=== PATIENT | female | born 1985 | race Caucasian/White ===

== ENCOUNTER 2020-09-06 00:12 | Emergency (ER) | payer OTHER ==
[2020-09-06 00:56] LABS: BASOPHIL 0.9 % (0-2); BILIRUBIN NEGATIVE (NEGATIVE); BLOOD 3+ Ery/uL (NEGATIVE); CLARITY CLEAR (CLEAR); COLOR YELLOW (YELLOW); EOSINOPHIL 5.2 % (0-5); GLUCOSE (U) NORMAL (NORMAL); HCT 35.2 % (37.0-47.0); HGB 12.3 g/dl (12.5-16.0); LEUKOCYTES NEGATIVE Leu/uL (NEGATIVE); LYMPHOCYTE 29.5 % (15-48); MCH 32.5 pg (25.0-31.0); MCHC 34.9 g/dL (32.0-36.0); MCV 93.1 fL (78.0-100.0); MONOCYTE 5.6 % (0-12); MPV 9.7 fL (6.0-9.5); NEUTROPHIL 58.4 % (41-80); NITRITE NEGATIVE (NEGATIVE); NRBC 0; PLT 334 K/uL (150-400); PROTEIN NEGATIVE (NEGATIVE); RBC 3.78 M/uL (4.20-5.40); RDW 12.1 % (11.5-14.0); SPECIFIC GRAVITY 1.025 (1.001-1.030); UROBILINOGEN 0.2 mg/dL (0.2-1.0); WBC 11.1 K/uL (4.0-10.5)
[2020-09-06 01:05] LABS: AMORPHOUS URATES CRYSTALS MODERATE; MUCOUS TRACE; URINARY WBC RARE
[2020-09-06 01:14] LABS: INR 1.13 (0.9-1.2); PROTHROMBIN TIME 13.8 SECONDS (11.4-13.6); PTT 34.3 SECONDS (22.2-34.7)
[2020-09-06 01:21] LABS: ALBUMIN 3.6 g/dL (3.4-5.0); BILIRUBIN - TOTAL 0.1 mg/dL (0.2-1.0); BUN/CREAT RATIO (CALC) 21.3 RATIO; CREATININE 0.75 mg/dL (0.51-0.95); GLOBULIN (CALCULATION) 3.7 g/dL; POTASSIUM 3.8 mmol/L (3.5-5.1); TOTAL PROTEIN 7.3 g/dL (6.4-8.2)
[2020-09-08 06:10] LABS: CHLAMYDIA TRACHOMATIS, NAA Negative (Negative); NEISSERIA GONORRHOEAE, NAA Negative (Negative)
== END 2020-09-06 02:20 | disposition home or self-care (01) ==
LOC: FER 00:12
PROVIDERS: Emergency Medicine Emergency Medical Services
DX: N94.6 Dysmenorrhea, unspecified (principal); J45.909 Unspecified asthma, uncomplicated; F17.210 Nicotine dependence, cigarettes, uncomplicated
CPT/HCPCS: 36415; 80053; 81001; 85025; 85610; 85730; 86900; 86901; 87210; 87491; 87591; J2270; J2405; J7030

== ENCOUNTER → 2021-06-13 | Day surgery (SDC) | payer OTHER ==
[~2021-06-13] VITALS: Ht 172.7 cm; Wt 89.8 kg
[~2021-06-13] MED LIST: COLACE100 MG PO; DULERA 200 MCG8.8 GM INH; MOTRIN600 MG PO; NAPROXEN500 MG PO; OZEMPIC0.25 MG/0. SC; PERCOCET 5-3251 EACH PO; XOPENEX HFA15 GM INH
[2021-06-13 11:29] LABS: HCG (URINE) SCREEN NEGATIVE (NEGATIVE)
[2021-06-13 11:36] LABS: HCT 37.1 % (37.0-47.0); HGB 12.8 g/dl (12.5-16.0); MCH 31.4 pg (25.0-31.0); MCHC 34.5 g/dL (32.0-36.0); MCV 90.9 fL (78.0-100.0); MPV 9.7 fL (6.0-9.5); RBC 4.08 M/uL (4.20-5.40); RDW 12.1 % (11.5-14.0); WBC 8.3 K/uL (4.0-10.5)
== END | disposition home or self-care (01) ==
LOC: FAS 10:59
PROVIDERS: Obstetrics & Gynecology
DX: D25.1 Intramural leiomyoma of uterus (principal); N80.0 Endometriosis of uterus; N72 Inflammatory disease of cervix uteri; N87.9 Dysplasia of cervix uteri, unspecified; N92.1 Excessive and frequent menstruation with irregular cycle; E78.5 Hyperlipidemia, unspecified; E66.3 Overweight; E55.9 Vitamin D deficiency, unspecified; K21.9 Gastro-esophageal reflux disease without esophagitis; F17.210 Nicotine dependence, cigarettes, uncomplicated; J45.909 Unspecified asthma, uncomplicated; Z68.30 Body mass index [BMI] 30.0-30.9, adult; Z90.49 Acquired absence of other specified parts of digestive tract; Z90.79 Acquired absence of other genital organ(s)
CPT/HCPCS: 36415; 84703; 86850; 86900; 86901; J0690; J1170; J1885; J2250; J2405; J2704; J2710; J3010; J7120

== ENCOUNTER 2021-09-29 12:32 | Emergency (ER) | payer OTHER ==
[2021-09-29] MEDS ORDERED: MOTRIN600 MG PO (15:28)
== END 2021-09-29 15:45 | disposition home or self-care (01) ==
LOC: FER 12:32
DX: S93.401A Sprain of unspecified ligament of right ankle, initial encounter (principal); S93.601A Unspecified sprain of right foot, initial encounter; Z28.310 Unvaccinated for COVID-19; X58.XXXA Exposure to other specified factors, initial encounter; Y93.89 Activity, other specified; Y92.89 Other specified places as the place of occurrence of the external cause; Y99.0 Civilian activity done for income or pay
CPT/HCPCS: 73590; 73610; 73630; J1885